=== PATIENT | male | born 1960 | race Caucasian/White ===

== ENCOUNTER → 2024-09-06 10:28 | Outpatient (CLI) | payer BC, SELFPAY ==
[2024-09-06 19:19] LABS: Alanine Aminotransferase 30 IU/L (<50); Albumin 4.2 g/dL (3.5-5.0); Albumin Globulin Ratio 1.7 (1.0-2.8); Alkaline Phosphatase 53 U/L (38-126); Aspartate Aminotransferase 37 IU/L (17-59); BUN Creatinine Ratio 16.8 (6-22); Bilirubin Total 0.7 mg/dL (0.2-1.3); Blood Urea Nitrogen 17 mg/dL (9-20); Calcium 9.3 mg/dL (8.4-10.2); Carbon Dioxide 31 mmol/L (22-32); Chloride 103 mmol/L (98-107); Estimated Glomerular Filt Rate > 60 mL/min (>60); Globulin 2.5 g/dL (1.7-4.1); Glucose 104 mg/dL (80-110); HEMOLYSIS < 15 (0-50); Potassium 4.1 mmol/L (3.4-5.1); Sodium 139 mmol/L (137-145); Total Protein 6.7 g/dL (6.3-8.2)
[2024-09-06 19:32] LABS: Add Manual Diff / Slide Review NO; Basophils Absolute Auto 0 /uL (0-100); Basophils Percent Auto 0.4 % (0-2); Eosinophils Absolute Auto 100 /uL (0-450); Eosinophils Percent Auto 1.6 % (2-4); Hematocrit 45.1 % (41-53); Hemoglobin 15.7 g/dL (13.5-17.5); Lymphocytes Absolute Auto 1800 /uL (1100-4500); Mean Corpuscular HGB Conc 34.9 % (30-36); Mean Corpuscular Hemoglobin 31.8 PG (26-34); Monocytes Absolute Auto 500 /uL (0-900); Monocytes Percent Auto 7.6 % (3-14); Neutrophils Absolute Auto 4700 /uL (1500-7000); Neutrophils Percent Auto 65.4 % (50-75); Platelet Count 203 X10^3/uL (150-400); Red Blood Cell Count 4.95 X10^6/uL (4.5-5.9); White Blood Cell Count 7.2 X10^3/uL (4.5-11.0)
[2024-09-06 19:50] LABS: Prostate Specific Antigen Scrn 3.51 ng/mL (0.1-4.0)
[2024-09-06 19:53] LABS: Thyroid Stimulating Hormone 1.31 uIU/mL (0.47-4.68)
== END ==
PROVIDERS: PCP Family Medicine; Visit Provider Family Medicine
DX: Z13.1 Encounter for screening for diabetes mellitus (principal); Z13.6 Encounter for screening for cardiovascular disorders; Z13.29 Encounter for screening for other suspected endocrine disorder; Z13.0 Encounter for screening for diseases of the blood and blood-forming organs and certain disorders involving the immune mechanism; Z12.5 Encounter for screening for malignant neoplasm of prostate
CPT/HCPCS: 80053; 84443; 85025; G0103

== ENCOUNTER → 2024-09-15 10:09 | Outpatient (CLI) | payer BC, SELFPAY ==
[2024-09-15 19:13] LABS: Cholesterol 211 mg/dL (140-199); HDL Cholesterol 41 mg/dL (40-60); LDL Cholesterol Calculated 146 mg/dL (<100); Triglycerides 121 mg/dL (35-150)
== END ==
PROVIDERS: PCP Family Medicine; Visit Provider Family Medicine
DX: Z13.6 Encounter for screening for cardiovascular disorders (principal); Z13.0 Encounter for screening for diseases of the blood and blood-forming organs and certain disorders involving the immune mechanism; Z13.1 Encounter for screening for diabetes mellitus
CPT/HCPCS: 80061

== ENCOUNTER → 2025-05-30 10:27 | Outpatient (CLI) | payer BC, SELFPAY ==
[2025-05-30 19:22] LABS: Hematocrit 45.5 % (41-53); Hemoglobin 15.9 g/dL (13.5-17.5); Mean Corpuscular HGB Conc 35.0 % (30-36); Mean Corpuscular Hemoglobin 31.3 PG (26-34); Mean Corpuscular Volume 89.2 fL (80-100); Platelet Count 188 X10^3/uL (150-400)
[2025-05-30 19:31] LABS: Alanine Aminotransferase 23 IU/L (<50); Albumin 4.2 g/dL (3.5-5.0); Albumin Globulin Ratio 1.6 (1.0-2.8); Alkaline Phosphatase 62 U/L (38-126); Blood Urea Nitrogen 17 mg/dL (9-20); Calcium 8.7 mg/dL (8.4-10.2); Carbon Dioxide 28 mmol/L (22-32); Chloride 103 mmol/L (98-107); Cholesterol 197 mg/dL (140-199); Estimated Glomerular Filt Rate > 60 mL/min (>60); Globulin 2.6 g/dL (1.7-4.1); Glucose 89 mg/dL (70-99); HDL Cholesterol 51 mg/dL (40-60); HEMOLYSIS 22 (0-50); Potassium 4.3 mmol/L (3.4-5.1); Sodium 137 mmol/L (137-145); Total Protein 6.8 g/dL (6.3-8.2); Triglycerides 142 mg/dL (35-150)
== END ==
PROVIDERS: PCP Family Medicine; Visit Provider Family Medicine
DX: E78.2 Mixed hyperlipidemia (principal); Z13.29 Encounter for screening for other suspected endocrine disorder; Z13.1 Encounter for screening for diabetes mellitus; Z13.6 Encounter for screening for cardiovascular disorders; Z13.0 Encounter for screening for diseases of the blood and blood-forming organs and certain disorders involving the immune mechanism
CPT/HCPCS: 80053; 80061; 85027; G0103